=== PATIENT | male | born 1960 | race Hispanic/Latino ===

== ENCOUNTER 2020-10-06 22:37 | Emergency (ER) | payer MEDICARE, OTHER ==
[2020-10-06] MEDS ORDERED: Ventolin HFA Inhaler 60 PUFF INHALER ONE (22:56)
[2020-10-06 23:01] LABS: #Basophils 0.1 thou/uL (0.0-0.2); #Eosinphils 0.2 thou/uL (0.0-0.7); #Monocytes 0.5 thou/uL (0.11-0.59); #Neutrophils 3.5 thou/uL (1.40-6.50); %Basophils 0.9 % (0.0-1.0); %Eosinophils 3.5 % (0.0-10.0); %Lymphocytes 32.1 % (21.0-51.0); %Monocytes 8.1 % (0.0-10.0); %Neutrophils 55.3 % (42.0-75.0); Hemoglobin 15.6 g/dL (14.0-18.0); Mean Corpuscular HGB CONC 33.4 g/dL (32.0-36.0); Mean Corpuscular Hemoglobin 31.1 pg (27.0-31.0); Mean Corpuscular Volume 93.3 fL (78.0-98.0); Mean Platelet Volume 9.8 fL (7.4-10.4); Platelet Count 113 thou/uL (130-400); Platelet Morphology Comment Appears Decreased; RBC Morphology Normal; Red Blood Cell (RBC) Count 5.02 mill/uL (4.70-6.10); White Blood Cell (WBC) Count 6.3 thou/uL (4.8-10.8)
--- NOTE | 2020-10-06 23:12 | RAD ---
XR Chest 1 View Portable HISTORY: Dyspnea COMPARISON: 06/21/2014 FINDINGS: The heart size is normal. The lungs are well expanded without focal areas of consolidation, pneumothorax or pleural effusions. IMPRESSION: No radiographic evidence of acute cardiopulmonary process.
[2020-10-06 23:19] LABS: ALT (SGPT) 54 U/L (8-55); AST (SGOT) 37 U/L (5-34); Alkaline Phosphatase 101 U/L (40-110); Anion Gap 15 mmol/L (10-20); BUN (Urea Nitrogen) 17 mg/dL (8.4-25.7); Bilirubin, Total 1.4 mg/dL (0.2-1.2); CK (CPK) 128 U/L (30-200); Calc. Creatinine Clearance 0 mL/min (70-130); Calcium 8.9 mg/dL (7.8-10.44); Carbon Dioxide 21 mmol/L (23-31); Chloride 103 mmol/L (98-107); Estimated GFR-MDRD 56; Globulin 4.3 g/dL (2.4-3.5); Glucose 216 mg/dL (80-115); Potassium 3.8 mmol/L (3.5-5.1); Protein, Total 8.3 g/dL (5.8-8.1); Sodium 135 mmol/L (136-145)
[2020-10-07 02:18] LABS: Troponin I Less than 0.010 ng/mL (< 0.028)
== END 2020-10-07 02:35 | disposition home or self-care (01) ==
LOC: NAV ERS 22:37
DX: J44.9 Chronic obstructive pulmonary disease, unspecified (principal); R07.2 Precordial pain; I25.2 Old myocardial infarction; E11.9 Type 2 diabetes mellitus without complications; G47.30 Sleep apnea, unspecified; Z79.84 Long term (current) use of oral hypoglycemic drugs; Z79.891 Long term (current) use of opiate analgesic
CPT/HCPCS: 36415; 71045; 80053; 82550; 83880; 84484; 85025; 93005